=== PATIENT | male | born 1970 | race Caucasian/White ===

== ENCOUNTER 2020-07-19 14:01 | Outpatient (REF) | payer MEDICARE, MEDICAID, SELFPAY | END 2020-07-19 14:02 | disposition home or self-care (01) | LOC: HO.LAB 14:01 | PROVIDERS: PCP Family Medicine; Visit Provider Internal Medicine | DX: Z20.828 Contact with and (suspected) exposure to other viral communicable diseases (principal) | CPT/HCPCS: C9803; U0003 ==

== ENCOUNTER 2020-08-26 10:44 | Outpatient (REF) | payer MEDICARE, MEDICAID, SELFPAY | END 2020-08-26 10:45 | disposition home or self-care (01) | LOC: HO.LAB 10:44 | PROVIDERS: PCP Family Medicine; Visit Provider Internal Medicine | DX: Z20.828 Contact with and (suspected) exposure to other viral communicable diseases (principal) | CPT/HCPCS: C9803; U0003 ==

== ENCOUNTER 2020-09-23 12:46 | Outpatient (REF) | payer MEDICARE, MEDICAID, SELFPAY ==
--- NOTE | 2020-09-23 14:31 | MHC.AU.P13 ---
Adult Audiological Evaluation Date of Visit: 09/23/20 Reason for Appointment: Patient was accompanied by a staff member of his program. Patient has received surgery for a brain tumor on the right side of his head. He reports that when they performed the surgery, his right ear canal was affected. Patient has not previously worn hearing aids. Does patient feel they have a hearing loss?: Yes If Yes, Which Ear?: Right Ear When Was Hearing Difficulty First Noticed?: Has hearing been tested previously?: Yes Previous Hearing Test Results: Not available for review at this time Hearing Handicap Inventory HHIE SCORE: 12 Based on HHIE score, patient has: Mild to moderate perceived hearing handicap Ear History: Ear Deformity: Right Ear Recent Ear Drainage: None Reported Recent Ear Pain: None Reported Ear Infections in Childhood: Both Ears History of Ear Wax Buildup: Right Ear Medical History: Medical History: Brain tumor (type not specified), Head Injury Otoscopy: Right Ear: Partially occluded with cerumen Left Ear: Unremarkable Tympanometry: Right Ear: Normal Middle Ear System (Type A) Left Ear: Normal Middle Ear System (Type A) Otoacoustic Emissions Frequency Range Used: 1.6-8 kHz Right Ear Results: Absent Emissions Analysis: Reduced/Absent emissions suggest cochlear dysfunction Left Ear Results: Present 1.6-3 kHz, absent 4-8 kHz Analysis: Reduced/Absent emissions suggest cochlear dysfunction Hearing Evaluation: Transducer(s) Used: Insert Earphones Method: Conventional Audiometry Stimuli Used: Pure Tones Right Ear: Description of Hearing: Profound mixed hearing loss Left Ear: Description of Hearing: Normal sloping to severe mixed hearing loss Speech Recognition Threshold (SRT): Method Used: Monitored Live Voice Stimuli Used: Spondee Words Right Ear: NR at 100 dBHL Left Ear: 25 dBHL Word Discrimination: Method: Recorded Lists Word Lists Used: NU-6 Right Ear: Could not test due to extent of hearing loss Left Ear: 100% at 65 dBHL Recommendations: Audiological re-evaluation in one year. With permission, cerumen was removed from the right canal prior to testing using a lighted disposable curette without complication. Patient may benefit from amplification. Patient is not interested at this time. If patient and his guardian were to express interest in hearing aids in the future, they are welcome to schedule a hearing aid evaluation to discuss options. Diagnosis: Primary Diagnosis: H90.6 Mixed Hearing Loss, Bilateral Services Performed: Services Performed: Comprehensive Audiological Evaluation (CPT 92426), Limited Otoacoustic Emissions (CPT 51898), Tympanometry (CPT 37443) Signature: Provider: Genoveva Acosta, CCC-A
== END 2020-09-23 12:47 | disposition home or self-care (01) ==
LOC: HO.SH 12:46
PROVIDERS: Visit Provider Family Medicine
DX: H90.6 Mixed conductive and sensorineural hearing loss, bilateral (principal)
CPT/HCPCS: 92557; 92567; 92587

== ENCOUNTER 2020-10-10 08:40 | Outpatient (REF) | payer MEDICARE, MEDICAID, SELFPAY ==
[2020-10-10 09:52] LABS: Alanine Aminotransferase 18 U/L (0-40); Albumin Level 4.1 g/dL (3.5-5.0); Alkaline Phosphatase 96 U/L (39-117); Anion Gap 16 (12-20); Aspartate Amino Transferase 24 U/L (5-37); Bilirubin Total 0.9 mg/dL (0.0-1.0); Blood Urea Nitrogen 16 mg/dL (9-16); Calcium 9.1 mg/dL (8.4-10.2); Carbon Dioxide 27 mmol/L (22-29); Chloride 106 mmol/L (96-108); Estimated Glomerular Filt Rate > 60; Glucose Fasting 94 mg/dL (60-99); Potassium 4.5 mmol/l (3.3-5.1); Sodium 144 mmol/L (135-145); Total Protein 6.9 g/dL (6.5-8.0)
[2020-10-10 10:31] LABS: Estimated Average Glucose 97 mg/dL
== END 2020-10-10 08:41 | disposition home or self-care (01) ==
LOC: HO.LAB 08:40
PROVIDERS: Visit Provider Family Medicine
DX: E78.00 Pure hypercholesterolemia, unspecified (principal); R73.9 Hyperglycemia, unspecified; G40.909 Epilepsy, unspecified, not intractable, without status epilepticus; Z79.899 Other long term (current) drug therapy
CPT/HCPCS: 36415; 80053; 82550; 83036

== ENCOUNTER 2021-02-18 10:44 | Outpatient (REF) | payer MEDICARE, MEDICAID, SELFPAY ==
[2021-02-18 11:57] LABS: MANUAL DIFF FLAG NO
[2021-02-18 12:08] LABS: Basophils Percent Auto 0.3 % (0-2); Eosinophils Absolute Auto 0.2 X10*3/uL (0.0-0.4); Eosinophils Percent Auto 3.2 % (0-4); Hematocrit 43.3 % (42-52); Hemoglobin 14.1 g/dl (14.0-18.0); Imm Gran Abs Auto 0.03 X10*3/uL (0.00-0.03); Imm Gran Pct Auto 0.4 % (0.0-0.4); Lymphocytes Absolute Auto 1.1 X10*3/uL (1.2-4.9); Lymphocytes Percent Auto 14.9 % (20-40); Mean Corpuscular HGB Conc 32.6 g/dl (31.0-36.0); Mean Corpuscular Hemoglobin 30.1 pg (27.0-33.0); Mean Corpuscular Volume 92.5 fL (80-98); Mean Platelet Volume 9.3 fL (9.4-12.4); Monocytes Absolute Auto 0.8 X10*3/uL (0.1-1.2); Monocytes Percent Auto 10.3 % (2-11); Neutrophils Absolute Auto 5.2 X10*3/uL (2.0-8.3); Neutrophils Percent Auto 70.9 % (45-73); Platelet Count 251 X10*3/uL (160-400); Red Blood Count 4.68 X10*6/uL (4.60-5.80); Red Cell Distribution Width 12.1 % (11.0-16.0); White Blood Count 7.3 X10*3/uL (4.8-10.8)
[2021-02-18 12:36] LABS: Thyroid Stimulating Hormone 1.14 uIU/mL (0.32-4.0)
[2021-02-18 13:05] LABS: Alanine Aminotransferase 17 U/L (0-40); Albumin Level 4.2 g/dL (3.5-5.0); Alkaline Phosphatase 104 U/L (39-117); Anion Gap 11 (12-20); Aspartate Amino Transferase 19 U/L (5-37); Bilirubin Total 0.7 mg/dL (0.0-1.0); Blood Urea Nitrogen 12 mg/dL (9-16); Calcium 9.5 mg/dL (8.4-10.2); Carbon Dioxide 29 mmol/L (22-29); Chloride 107 mmol/L (96-108); Estimated Glomerular Filt Rate > 60; Glucose Random 95 mg/dL (60-115); Potassium 4.5 mmol/L (3.3-5.1); Sodium 142 mmol/L (135-145); Total Protein 6.5 g/dL (6.5-8.0)
== END 2021-02-18 10:45 | disposition home or self-care (01) ==
LOC: HO.LAB 10:44
PROVIDERS: PCP Family Medicine; Visit Provider Family Medicine
DX: R63.4 Abnormal weight loss (principal); G40.909 Epilepsy, unspecified, not intractable, without status epilepticus; E78.00 Pure hypercholesterolemia, unspecified; Z79.899 Other long term (current) drug therapy
CPT/HCPCS: 36415; 80053; 82550; 84443; 85025

== ENCOUNTER 2021-11-24 11:03 | Outpatient (REF) | payer MEDICARE, MEDICAID, SELFPAY ==
[2021-11-24 13:31] LABS: MANUAL DIFF FLAG NO
[2021-11-24 13:43] LABS: Basophils Percent Auto 0.6 % (0-2); Eosinophils Absolute Auto 0.2 X10*3/uL (0.0-0.4); Eosinophils Percent Auto 3.5 % (0-4); Hematocrit 45.1 % (42.0-52.0); Hemoglobin 14.9 g/dl (14.0-18.0); Imm Gran Abs Auto 0.02 X10*3/uL (0.00-0.03); Imm Gran Pct Auto 0.3 % (0.0-0.4); Lymphocytes Absolute Auto 1.5 X10*3/uL (1.2-4.9); Mean Corpuscular Hemoglobin 29.8 pg (27.0-33.0); Mean Corpuscular Volume 90.2 fL (80.0-98.0); Mean Platelet Volume 9.5 fL (9.4-12.4); Monocytes Absolute Auto 0.8 X10*3/uL (0.1-1.2); Monocytes Percent Auto 11.8 % (2-11); Neutrophils Absolute Auto 4.1 x10*3/uL (2.0-8.3); Neutrophils Percent Auto 61.8 % (45-73); Platelet Count 242 X10*3/uL (160-400); Red Cell Distribution Width 12.1 % (11.0-16.0); White Blood Count 6.6 X10*3/uL (4.8-10.8)
[2021-11-24 13:52] LABS: Alanine Aminotransferase 20 U/L (0-40); Albumin Level 4.2 g/dL (3.5-5.0); Alkaline Phosphatase 111 U/L (39-117); Anion Gap 11 (12-20); Aspartate Amino Transferase 21 U/L (5-37); Bilirubin Total 0.8 mg/dL (0.0-1.0); Blood Urea Nitrogen 13 mg/dL (9-16); Calcium 9.8 mg/dL (8.4-10.2); Carbon Dioxide 29 mmol/L (22-29); Chloride 105 mmol/L (96-108); Estimated Glomerular Filt Rate > 60; Glucose Fasting 101 mg/dL (60-99); Potassium 4.4 mmol/L (3.3-5.1); Sodium 141 mmol/L (135-145); Total Protein 6.8 g/dL (6.5-8.0)
== END 2021-11-24 11:04 | disposition home or self-care (01) ==
LOC: HO.10HDL 11:03
PROVIDERS: Visit Provider Family Medicine
DX: E78.00 Pure hypercholesterolemia, unspecified (principal); G40.909 Epilepsy, unspecified, not intractable, without status epilepticus; R27.0 Ataxia, unspecified; Z79.899 Other long term (current) drug therapy
CPT/HCPCS: 36415; 80053; 82550; 85025

== ENCOUNTER 2022-04-24 10:16 | Outpatient (REF) | payer MEDICARE, MEDICAID, SELFPAY ==
[2022-04-24 10:39] LABS: MANUAL DIFF FLAG NO
[2022-04-24 11:29] LABS: Basophils Percent Auto 0.5 % (0-2); Eosinophils Absolute Auto 0.2 X10*3/uL (0.0-0.4); Eosinophils Percent Auto 2.6 % (0-4); Hematocrit 43.7 % (42.0-52.0); Hemoglobin 14.6 g/dl (14.0-18.0); Imm Gran Abs Auto 0.03 X10*3/uL (0.00-0.03); Imm Gran Pct Auto 0.5 % (0.0-0.4); Lymphocytes Absolute Auto 1.4 X10*3/uL (1.2-4.9); Lymphocytes Percent Auto 22.9 % (20-40); Mean Corpuscular HGB Conc 33.4 g/dl (31.0-36.0); Mean Corpuscular Hemoglobin 29.9 pg (27.0-33.0); Mean Corpuscular Volume 89.5 fL (80.0-98.0); Mean Platelet Volume 9.2 fL (9.4-12.4); Monocytes Absolute Auto 0.7 X10*3/uL (0.1-1.2); Monocytes Percent Auto 10.8 % (2-11); Neutrophils Absolute Auto 3.9 x10*3/uL (2.0-8.3); Neutrophils Percent Auto 62.7 % (45-73); Platelet Count 248 X10*3/uL (160-400); Red Blood Count 4.88 X10*6/uL (4.60-5.80); White Blood Count 6.2 X10*3/uL (4.8-10.8)
[2022-04-24 12:02] LABS: Alanine Aminotransferase 15 U/L (0-40); Anion Gap 15 (12-20); Aspartate Amino Transferase 20 U/L (5-37); Blood Urea Nitrogen 11 mg/dL (9-16); Carbon Dioxide 26 mmol/L (22-29); Chloride 106 mmol/L (96-108); Cholesterol 147 mg/dL; Estimated Glomerular Filt Rate > 60; Glucose Fasting 96 mg/dL (60-99); HDL Cholesterol 44 mg/dL; LDL Cholesterol Calculated 77 mg/dl; Potassium 4.4 mmol/L (3.3-5.1); Sodium 143 mmol/L (135-145); Triglycerides 131 mg/dL
== END 2022-04-24 10:17 | disposition home or self-care (01) ==
LOC: HO.LAB 10:16
PROVIDERS: PCP Family Medicine; Visit Provider Family Medicine
DX: E78.00 Pure hypercholesterolemia, unspecified (principal); R73.9 Hyperglycemia, unspecified; D45 Polycythemia vera; I95.9 Hypotension, unspecified; Z79.899 Other long term (current) drug therapy
CPT/HCPCS: 36415; 80051; 80061; 82550; 82565; 82947; 84450; 84460; 84520; 85025

== ENCOUNTER 2022-09-18 10:26 | Outpatient (REF) | payer MEDICARE, MEDICAID, SELFPAY ==
[2022-09-18 10:42] LABS: MANUAL DIFF FLAG NO
[2022-09-18 10:58] LABS: Basophils Percent Auto 0.5 % (0-2); Eosinophils Absolute Auto 0.3 X10*3/uL (0.0-0.4); Eosinophils Percent Auto 3.4 % (0-4); Hematocrit 44.4 % (42.0-52.0); Hemoglobin 14.5 g/dl (14.0-18.0); Imm Gran Abs Auto 0.03 X10*3/uL (0.00-0.03); Imm Gran Pct Auto 0.4 % (0.0-0.4); Lymphocytes Absolute Auto 1.7 X10*3/uL (1.2-4.9); Lymphocytes Percent Auto 20.9 % (20-40); Mean Corpuscular HGB Conc 32.7 g/dl (31.0-36.0); Mean Corpuscular Hemoglobin 29.1 pg (27.0-33.0); Monocytes Absolute Auto 0.9 X10*3/uL (0.1-1.2); Monocytes Percent Auto 10.5 % (2-11); Neutrophils Absolute Auto 5.3 x10*3/uL (2.0-8.3); Neutrophils Percent Auto 64.3 % (45-73); Platelet Count 235 X10*3/uL (160-400); Red Blood Count 4.99 X10*6/uL (4.60-5.80); Red Cell Distribution Width 12.2 % (11.0-16.0); White Blood Count 8.2 X10*3/uL (4.8-10.8)
[2022-09-18 12:06] LABS: Alanine Aminotransferase 18 U/L (0-40); Anion Gap 12 (12-20); Blood Urea Nitrogen 15 mg/dL (9-16); Carbon Dioxide 26 mmol/L (22-29); Chloride 110 mmol/L (96-108); Estimated Glomerular Filt Rate > 60; Potassium 4.4 mmol/L (3.3-5.1); Sodium 144 mmol/L (135-145)
[2022-09-22 17:03] LABS: Levetiracetam Keppra 76.3 mcg/mL (6.0-46.0)
== END 2022-09-18 10:27 | disposition home or self-care (01) ==
LOC: HO.LAB 10:26
PROVIDERS: PCP Family Medicine; Visit Provider Family Medicine
DX: I10 Essential (primary) hypertension (principal); E78.00 Pure hypercholesterolemia, unspecified; R27.0 Ataxia, unspecified; G40.909 Epilepsy, unspecified, not intractable, without status epilepticus; Z79.899 Other long term (current) drug therapy
CPT/HCPCS: 36415; 80051; 80177; 82565; 84460; 84520; 85025

== ENCOUNTER 2023-03-24 08:40 | Outpatient (REF) | payer MEDICARE, MEDICAID, SELFPAY ==
--- NOTE | ~2023-03-24 | FL_ITS ---
EXAMINATION: FL BARIUM SWALLOW CLINICAL INFORMATION: Dysphagia. COMPARISON: 05/17/2018 and studies dating back to 03/25/2007 (report). TECHNIQUE: Gastrografin swallow examination is performed using fluoroscopic evaluation in addition to multiple fluoroscopic spot views. The patient is imaged upright due to visualized aspiration. Fluoroscopy time: 0.9 minutes DAP: 1.992 uGy-cm2 Images: 58 FINDINGS: During swallowing of the Gastrografin there is noted to be small bilateral pharyngeal diverticula left greater than right. There is noted to be laryngeal penetration and aspiration with the thin Gastrografin. There is a cough reflex elicited. No esophageal stricture identified. No esophageal ulceration is seen. FL/FL barium swallow IMPRESSION: Laryngeal penetration and tracheal aspiration with cough reflex. Small laryngeal diverticula.
== END 2023-03-24 08:41 | disposition home or self-care (01) ==
LOC: HO.XRAY 08:40
PROVIDERS: PCP Family Medicine; Visit Provider Family Medicine
DX: R13.10 Dysphagia, unspecified (principal)
CPT/HCPCS: 74220

== ENCOUNTER → 2023-03-24 08:41 | Outpatient (BNV) | payer MEDICARE, MEDICAID, SELFPAY | PROVIDERS: PCP Family Medicine; Visit Provider Radiology Diagnostic Radiology | DX: R13.10 Dysphagia, unspecified (principal) | CPT/HCPCS: 74220 ==

== ENCOUNTER 2023-12-02 10:52 | Outpatient (REF) | payer MEDICARE, MEDICAID, SELFPAY ==
[2023-12-02 11:06] LABS: MANUAL DIFF FLAG NO
[2023-12-02 11:27] LABS: Basophils Percent Auto 0.3 % (0-2); Eosinophils Absolute Auto 0.1 X10*3/uL (0.0-0.4); Eosinophils Percent Auto 1.3 % (0-4); Hematocrit 44.6 % (42.0-52.0); Hemoglobin 14.9 g/dl (14.0-18.0); Imm Gran Abs Auto 0.05 X10*3/uL (0.00-0.03); Imm Gran Pct Auto 0.5 % (0.0-0.4); Lymphocytes Absolute Auto 1.3 X10*3/uL (1.2-4.9); Lymphocytes Percent Auto 11.3 % (20-40); Mean Corpuscular HGB Conc 33.4 g/dl (31.0-36.0); Mean Corpuscular Hemoglobin 30.3 pg (27.0-33.0); Mean Corpuscular Volume 90.7 fL (80.0-98.0); Mean Platelet Volume 9.3 fL (9.4-12.4); Monocytes Absolute Auto 0.9 X10*3/uL (0.1-1.2); Monocytes Percent Auto 8.5 % (2-11); Neutrophils Absolute Auto 8.7 x10*3/uL (2.0-8.3); Neutrophils Percent Auto 78.1 % (45-73); Platelet Count 244 X10*3/uL (160-400); Red Blood Count 4.92 X10*6/uL (4.60-5.80); Red Cell Distribution Width 12.5 % (11.0-16.0); White Blood Count 11.1 X10*3/uL (4.8-10.8)
[2023-12-02 11:59] LABS: Alanine Aminotransferase 15 U/L (0-40); Albumin Level 4.1 g/dL (3.5-5.0); Alkaline Phosphatase 114 U/L (39-117); Anion Gap 11 (12-20); Aspartate Amino Transferase 18 U/L (5-37); Bilirubin Total 0.5 mg/dL (0.0-1.0); Blood Urea Nitrogen 16 mg/dL (9-16); Calcium 9.5 mg/dL (8.4-10.2); Carbon Dioxide 30 mmol/L (22-29); Chloride 109 mmol/L (96-108); Estimated Glomerular Filt Rate > 60; Glucose Random 99 mg/dL (60-115); Sodium 146 mmol/L (135-145)
== END 2023-12-02 10:53 | disposition home or self-care (01) ==
LOC: HO.LAB 10:52
PROVIDERS: PCP Family Medicine; Visit Provider Family Medicine
DX: G40.909 Epilepsy, unspecified, not intractable, without status epilepticus (principal); E78.00 Pure hypercholesterolemia, unspecified; R27.0 Ataxia, unspecified; Z79.899 Other long term (current) drug therapy
CPT/HCPCS: 36415; 80053; 82550; 85025

== ENCOUNTER 2024-08-31 08:10 | Outpatient (REF) | payer MEDICARE, MEDICAID, SELFPAY ==
--- OUTSIDE RECORDS SUMMARY | 2024-08-31 08:17 | XMS_ITS ---
Author Organization [facility] Address [address] [place] [address] Care Team Providers Care Telecasting Technician Name Role Phone Yung Petersen MD Primary Care Provider Chava Colunga Unavailable [phone] ALLERGIES Allergen (clinical drug ingredient) Drug/Non Drug Allergy documented on EMR Reaction Allergy Type Onset Date Status phenytoin Dilantin Unknown Drug Allergy Active benzodiazepine (FN) benzodiazepines (uncoded) Unknown Allergy Active barbiturate (FN) Barbituates (uncoded) Unknown Allergy Active many generic drugs (uncoded) Unknown Allergy Active strawberry allergenic extract strawberries (uncoded) Unknown Allergy Activ e Tranxene-SD Unknown Drug Allergy Activ e MEDICATIONS Medication SIG (Take, Route, Frequency, Duration) Notes Start Date End Date Status Multivitamin -- one tablet Orally on ce a day Unknown zocor 40 one tablet Oral once a day Unknown Remeron 45 MG 1 tablet at bedtime Orally Once a day Unknown Ativan 1 MG 1 tablet at bedtime as needed Orally Once a day/prn Unknown cloBAZam 10 MG 1 tablet Orally Twic e a day Unknown Lopressor 25 1 tablet with food Orally Twice a day Unknown LaMICtal 200 MG 1 tablet Orally Twic e a day/with 75 mg Unknown tylenol 650 one tablet Oral ever y 6 hours for mild pain Unknown Keppra 1000 MG TAKE 2 TABLETS BY MO [facility] TWICE DAILY Oral Twice a day Unknown Motrin 600 one tablet orally TW ICE DAILY-PRN Unknown Celluvisc 1% 1 drop into right ey e TID Unknown Omeprazole 20 MG 1 capsule Orally Onc e a day Unknown Oyster Shell Calcium/D3 500-400 MG-UNIT 1 tablet with meals Orally Twice a day Unknown PreviDent 5000 Plus 1.1 % Dental Unknown RisperDAL 3 MG 1 tablet Orally Once a day Unknown MiraLax (colon prep) 8.3 ounce ((238) grams mixed with Gatorade or Crystal Light orally begin at 5:00 p.m. the day before the procedure for 1 day 06/29/2019 Unknown Dulcolax (colon prep) 5 MG take at 3:00 p.m and 7:00p.m. Orally two tablets twice a day for one day for 1 day 06/29/2019 Unknown Encounters Encounter Location Date Provider Diagnosis [facility] [address] [facility] [address] [place] [address] 08/21/2024 Chava Rios PLAN OF TREATMENT No Information
--- OUTSIDE RECORDS SUMMARY | 2024-08-31 08:17 | XMS_ITS ---
Author Organization [facility] Address [address] [place] [address] Care Team Providers Care Public Administration Professor Name Role Phone Yung Petersen MD Primary Care Provider Unavailab Chava Calderon Unavailable [phone] Encounters Encounter Location Date Provider Diagnosis [facility] [address] [place] [address] 12/09/2023 Chava Rios PLAN OF TREATMENT No Information
--- OUTSIDE RECORDS SUMMARY | 2024-08-31 08:18 | XMS_ITS | Patient Health Record ---
Author Organization [facility] Address [address] [place] [address] Care Team Providers Care Director Industrial Relations Name Role Phone Yung Petersen MD Primary Care Provider UnavailChava Rosado Unavailable [phone] ALLERGIES Allergen (clinical drug ingredient) Drug/Non Drug Allergy documented on EMR Reaction Allergy Type Onset Date Status phenytoin Dilantin Unknown Drug Allergy Active benzodiazepine (FN) benzodiazepines (uncoded) Unknown Allergy Active barbiturate (FN) Barbituates (uncoded) Unknown Allergy Active many generic drugs (uncoded) Unknown Allergy Active strawberry allergenic extract strawberries (uncoded) Unknown Allergy Activ e Tranxene-SD Unknown Drug Allergy Activ e REASON FOR REFERRAL No Information MEDICATIONS Medication SIG (Take, Route, Frequency, Duration) Notes Start Date End Date Status tylenol 650 one tablet Oral ever y 6 hours for mild pain Unknown Keppra 1000 MG TAKE 2 TABLETS BY [facility] TWICE DAILY Oral Twice a day Unknown Oyster Shell Calcium/D3 500-400 MG-UNIT 1 tablet with meals Orally Twice a day Unknown Ativan 1 MG 1 tablet at bedtime as needed Orally Once a day/prn Unknown PreviDent 5000 Plus 1.1 % Dental Unknown cloBAZam 10 MG 1 tablet Orally Twic e a day Unknown RisperDAL 3 MG 1 tablet Orally Once a day Unknown MiraLax (colon prep) 8.3 ounce ((238) grams mixed with Gatorade or Crystal Light orally begin at 5:00 p.m. the day before the procedure for 1 day 06/29/2019 Unknown Motrin 600 one tablet orally TW ICE DAILY-PRN Unknown Dulcolax (colon prep) 5 MG take at 3:00 p.m and 7:00p.m. Orally two tablets twice a day for one day for 1 day 06/29/2019 Unknown Lopressor 25 1 tablet with food Orally Twice a day Unknown Multivitamin -- one tablet Orally on ce a day Unknown Celluvisc 1% 1 drop into right ey e TID Unknown zocor 40 one tablet Oral once a day Unknown Omeprazole 20 MG 1 capsule Orally Onc e a day Unknown Remeron 45 MG 1 tablet at bedtime Orally Once a day Unknown LaMICtal 200 MG 1 tablet Orally Twic e a day/with 75 mg Unknown IMMUNIZATIONS Vaccine Route Administration Date Status Comme nts Influenza Unknown 09/23/2018 Refused SOCIAL HISTORY Tobacco Use: Social History Observation Description Date Details (start date - stop date) Former Smoker NA - NA Sex Assigned At : Social History Observation Description Sex Assigned At Unknown Tobacco Use/Smoking Question Answer Notes Patient is a former smoker How long has it been since you last smoked? 1-5 years PROBLEMS Problem Type ICD Code Onset Dates Problem Status W/U Status Risk SNOMED Code Notes Problem Encounter for screening for malignant neoplasm of colon (Z12.11) Active confirmed 892103306 Problem Abnormal barium swallow (R93.3) Active confirmed Barium swallow abnormal (038137094) Problem Pharyngeal dysphagia (R13.13) Active confirmed 24703430943992 Problem Aspiration into airway, initial encounter (T17.908A) Active confirmed 549502227 Problem Aspiration into airway, subsequent encounter (T17.908D) Active confirmed 981631560 VITAL SIGNS Temperature 97.7 degrees Fahrenheit 10/26/2023 Blood pressure diastolic 00 mm Hg 10/26/2023 Height 68 in 10/26/2023 Blood pressure systolic 00 mm Hg 10/26/2023 Weight 142 lbs 10/26/2023 BMI 21.59 kg/m2 10/26/2023 Encounters Encounter Location Date Provider Diagnosis [facility] [address] [place] [address] 10/26/2023 Chava Rios Aspiration into airway, subsequent encounter T17.908D and Abnormal barium swallow R93.3 [facility] [address] [place] [address] 12/09/2023 Chava Rios [facility] [address] [place] [address] 08/21/2024 Chava Rios ASSESSMENTS Encounter Date Diagnosis Assessment Notes Treatment Notes Treatment Clinical Notes 10/26/2023 Abnormal barium swallow (ICD-10 - R93.3) 10/26/2023 Aspiration into airway, subsequent encounter (ICD-10 - T17.908D) Continue omeprazole and regular diet. Follow weights. His weight here today was 142#, which is 10# higher thn it was in 2019 PLAN OF TREATMENT Pending Test Test Name Order Date XR BARIUM SWALLOW-ESOPHAGUS 04/28/2018 XR BARIUM SWALLOW, MODIFIED VIDEO 2017 Future Test Test Name Order Date COLONOSCOPY 06/29/2019 Insurance Providers Payer Name Payer Address Payer Phone Subscriber Number Group Number Insured Name Patient Relationship to Insured Coverage Start Date Coverage End Date MEDICARE OF [place] [address] [place] [id number] LUCIA NATARAJAN Self - patient is the insured MEDICAID OF [facility] [address] [place] [address] [id number] LUCIA NATARAJAN Self - patient is the insured MEDICAL (GENERAL) HISTORY Medical History History ICD Code Epilepsy Depression Aspiration and GERD---Barium studies have shown a normal esophagus, but some aspiration---he [place] [facility] [place]. This was reconfirmed on barium swallow in March of 2023 but did not look particularly severe and he did have coughing during the imaging study HTN Brain tumor as below Negative screening colonoscopy in 09/2019 Surgical History Surgery Date(Month/Year) VNS implant for the epilepsy Brain surgery for a brain tumor at age 10 Bilateral ankle surgery
--- OUTSIDE RECORDS SUMMARY | 2024-08-31 08:18 | XMS_ITS ---
Author Organization [facility] Address [address] [place] [address] Care Team Providers Care Insurance Account Executive Name Role Phone Yung Petersen MD Primary Care Provider Chava Colunga Unavailable [phone] ALLERGIES Allergen (clinical drug ingredient) Drug/Non Drug Allergy documented on EMR Reaction Allergy Type Onset Date Status phenytoin Dilantin Unknown Drug Allergy Active benzodiazepine (FN) benzodiazepines (uncoded) Unknown Allergy Active barbiturate (FN) Barbituates (uncoded) Unknown Allergy Active many generic drugs (uncoded) Unknown Allergy Active strawberry allergenic extract strawberries (uncoded) Unknown Allergy Activ e Tranxene-SD Unknown Drug Allergy Activ e REASON FOR VISIT Patient presents today for an OFFICE ONE YEAR F/U HX OF DYSPHAGIA MEDICATIONS Medication SIG (Take, Route, Frequency, Duration) Notes Start Date End Date Status MiraLax (colon prep) 8.3 ounce ((238) grams mixed with Gatorade or Crystal Light orally begin at 5:00 p.m. the day before the procedure for 1 day 06/29/2019 Active Dulcolax (colon prep) 5 MG take at 3:00 p.m and 7:00p.m. Orally two tablets twice a day for one day for 1 day 06/29/2019 Active Ativan 1 MG 1 tablet at bedtime as needed Orally Once a day/prn Active cloBAZam 10 MG 1 tablet Orally Twic e a day Active Remeron 45 MG 1 tablet at bedtime Orally Once a day Active zocor 40 one tablet Oral once a day Active Lopressor 25 1 tablet with food [facility] Twice a day Active Multivitamin -- one tablet Orally on ce a day Active Keppra 1000 MG TAKE 2 TABLETS BY MO [facility] TWICE DAILY Oral Twice a day Active LaMICtal 200 MG 1 tablet Orally Twic e a day/with 75 mg Active PreviDent 5000 Plus 1.1 % Dental Active RisperDAL 3 MG 1 tablet Orally Once a day Active Oyster Shell Calcium/D3 500-400 MG-UNIT 1 tablet with meals Orally Twice a day Active Motrin 600 one tablet orally TW ICE DAILY-PRN Active tylenol 650 one tablet Oral ever y 6 hours for mild pain Active Omeprazole 20 MG 1 capsule Orally Onc e a day Active Celluvisc 1% 1 drop into right eye TID Active SOCIAL HISTORY Tobacco Use: Social History Observation [...] W/U Status Risk SNOMED Code Notes Problem Abnormal barium swallow (R93.3) Active confirmed Barium swallow abnormal (358479909) VITAL SIGNS BMI 21.59 kg/m2 10/26/2023 Blood pressure systolic 00 mm Hg 10/26/19 24 Blood pressure diastolic 00 mm Hg 024 Height 68 in 10/26/2023 Temperature 97.7 degrees Fahrenheit 10/26/19 24 Weight 142 lbs 10/26/2023 Encounters Encounter Location Date Provider Diagnosis [facility] [address] [place] [address] 10/26/2023 Chava Rios Aspiration into airway, subsequent encounter T17.908D and Abnormal barium swallow R93.3 ASSESSMENTS Encounter Date Diagnosis Assessment Notes Treatment Notes Treatment Clinical Notes 10/26/2023 Aspiration into airway, subsequent encounter (ICD-10 - T17.908D) Continue omeprazole and regular diet. Follow weights. His weight here today was 142#, which is 10# higher thn it was in 2019 10/26/2023 Abnormal barium swallow (ICD-10 - R93.3) PLAN OF TREATMENT Treatment Notes Assessment Notes Aspiration into airway, subs equent encounter Continue omeprazole and regular diet. Follow weights. His weight here today was 142#, which is 10# higher thn it was in 2019 Next Appt Details Follow Up: prn, Reason: Progress Notes * Examination Category Sub-Category Detail Notes General Examination GENERAL APPEARANCE: pleasant , well nourished, well developed, in no acute distress--he is wearing a helmet EYES: sclera non-icteric NECK/THYROID: no cervical lymphade nopathy, neck supple HEART: S1, S2 normal LUNGS: clear to auscultatio n bilaterally ABDOMEN: normal bowel sounds, no guarding or rigidity, no guarding or rigidity, no masses palpable, soft, nontender, nondistended NEUROLOGIC: alert and oriented SKIN: nonjaundiced, no spi luis angiomata EXTREMITIES: no edema ORAL CAVITY: mucosa moist
[2024-08-31 11:30] LABS: Glucose Fasting 112 mg/dL (60-99)
[2024-08-31 11:35] LABS: Estimated Average Glucose 103 mg/dL; Hemoglobin A1C 124.6998 umol/L; Hemoglobin A1c % 5.2 % (<6.0); Total Hemoglobin (HGBA1C) 3740.9723 umol/L
== END 2024-08-31 08:11 | disposition home or self-care (01) ==
LOC: HO.WFDLDS 08:10
PROVIDERS: Visit Provider Family Medicine
DX: R73.09 Other abnormal glucose (principal)
CPT/HCPCS: 36415; 82947; 83036

== ENCOUNTER 2024-10-13 09:34 | Outpatient (AMB) | payer MEDICARE, MEDICAID, SELFPAY ==
--- NOTE | 2024-10-13 07:57 | MHC.OFFVIS ---
Intake Visit Reasons: Former Smoker Allergies Barbiturates [BARBITURATES] Allergy (Unknown, Unverified 05/30/20 15:09) UNKNOWN Benzodiazepines [BENZODIAZEPINES] Allergy (Unknown, Unverified 05/30/20 15:09) UNKNOWN clorazepate dipotassium [From TRANXENE T-TAB] Allergy (Unknown, Unverified 05/30/20 15:09) UNKNOWN phenytoin [From DILANTIN] Allergy (Unknown, Unverified 05/30/20 15:09) UNKNOWN strawberry [STRAWBERRY] Allergy (Unknown, Unverified 05/30/20 15:09) UNKNOWN MANY GENERIC DRUGS Allergy (Unknown, Uncoded 05/30/20 15:09) UNKNOWN HPI HPI Former Smoker: Details: Initial visit for this 54yo former smoker with a 100PYH. Patient started smoking at age 14yo for 37 years at 1-5ppd. He quit in 2020 - [facility] [place] . Denies marijuana use. Denies second hand smoke exposure. Denies exposure to chemicals or substances like asbestos. . Denies known family history of lung cancer. Denies personal history of cancers. Denies chest CT in last year. . Denies recent travel outside the [place]. Denies recent respiratory illness or recent hospitalization for respiratory issues. Denies testing positive for COVID. Unsure if he receiving COVID Vaccine. . Denies fever, chills, new/worsening cough, hemoptysis, hoarseness or dysphagia. Denies significant chest pain, significant dyspnea or unintentional weight loss. Patient Lung Cancer Screening Questionnaire reviewed with patient by provider. . Shared Decision Making Completed. Patient meets criteria. Discussed in detail with patient, the risk vs benefit of LDCT screening. Patient consents to proceed with scan. Discussed and encouraged continued smoking cessation. [facility] Medical History (Updated 09/21/24 @ 12:44 by Gi Alfred PA-C) Seizure disorder History of sick sinus syndrome History of pacemaker History of acoustic neuroma Depression Hyperlipidemia GERD (gastroesophageal reflux disease) Personal history of nicotine dependence Surgical History (Updated 10/09/24 @ 13:22 by Gi Alfred PA-C) History of cardiac pacemaker History of craniotomy History of nasal septoplasty History of colonoscopy Social History (Updated 10/13/24 @ 10:00 by Gi Alfred PA-C) Patient Tobacco Use Status: Former Tobacco user Years Smoked: (onset 14yo, 1-5ppd x 37yrs, 100pyh, quit 2020) Assessment & Plan Assessment & Plan (1) Personal history of nicotine dependence: Comment: (onset 14yo, 2-5ppd - quit 2020) Code(s): Z87.891 - Personal history of nicotine dependence Category: Medical Plan: - SDM visit completed today in office. - Patient meets criteria for LDCT for lung cancer screening purposes and is asymptomatic. - Smoking cessation counseling offered. Patients can always call 0-800-Loaj-Now. - Will arrange for a LDCT scan of the chest for screening purposes at [facility]. - Risks, benefits, and alternatives were discussed in detail and the patient agrees to proceed. - Risks discussed include but are not limited to: radiation exposure, anxiety during testing and while awaiting results, false negatives, false positives and possibility of additional intervention such as further imaging or surgical procedures for benign disease. - Benefits are obviously detection of lung cancer at an early stage which can lead to improved outcomes. - Discussed the importance of screening program compliance with adherence to yearly LDCT scan as scheduled - or sooner interval scans for personalized screening regimen. - Discussed follow up plan. Our office will send a letter discussing results and if needed set up phone call and office visit based on CT findings. - Patient educated on results categorization and the management decisions for suspicious findings potentially found on the screening LDCT scan. Any patient with a Lung RADS score of 3 or 4 will be reviewed by a multidisciplinary team at [facility] to form a plan of action in regards to scan findings. - If further work up is warranted for a suspicious lung finding this will be followed by the Lung Cancer Screening program in conjunction with the Thoracic Surgery Department at [facility]. - A copy of the office note and LDCT will be sent to the patient's PCP - as well as documentation on any associated further plans of care. - Incidental findings on LDCT are the PCP's responsibility. These findings are indicated with an S finding on the LDCT Assessment. A note discussing the findings will be sent to the PCP who is then responsible for further management. - All questions answered.? Coding Level of Care Code Lung Cancer Screening G0296 Diagnoses Personal history of nicotine dependence Z87.891
== END 2024-10-13 10:02 | disposition home or self-care (01) ==
PROVIDERS: PCP Family Medicine; Visit Provider Physician Assistant Medical
DX: Z87.891 Personal history of nicotine dependence (principal)
CPT/HCPCS: G0296

== ENCOUNTER 2024-10-13 09:59 | Outpatient (REF) | payer MEDICARE, MEDICAID, SELFPAY ==
--- NOTE | ~2024-10-13 | CT_ITS ---
CLINICAL HISTORY: Z87.891 - Personal history of nicotine dependence CT lung cancer screening (LDCT) Comparison: CT/REG/DC/SR - CHEST WITHOUT CONTRAST 52504 - 04/22/20 13:09 EDT Technique: Axial CT images of the chest using low-dose technique. Referring provider counseled the patient on shared decision-making for LDCT screening. Additional counseling was provided on smoking cessation. Effective radiation dose total: DLP 32.9 mGycm, CTDIvol 1 mGy. Findings: The prior CT reports are not available for review. Lung: Centrilobular and paraseptal emphysema. Status post wedge resection with postsurgical changes of the right upper lobe. Multiple small pulmonary nodules: 2 mm in the right upper lobe series 4, image 26; 2 mm in the right middle lobe image 32; 4.8 mm in the right lower lobe abutting the fissure image 30, previously 3.4 mm. Stable multiple punctate nodules of the right lower lobe. Stable 2 mm nodule of the left lower lobe abutting the fissure. Stable 3 mm subpleural nodule of the right upper lobe image 29. Coronary artery calcifications: Mild Limited upper abdomen: There is a gallstones in the gallbladder. Other: None Impression: LungRADS 2 - Benign Appearance: Continue annual screening with low dose Chest CT in 12 months. ##L2# Category 1: Normal; continue annual screening Category 2: Benign appearance or behavior, continue annual screening Category 3: Probably benign, [address] recommended Category 4A: Suspicious, [address] recommended; may consider PET/CT Category 4B: Suspicious, Additional diagnostics and/or tissue sampling recommended Category 4X: Suspicious, Additional diagnostics and/or tissue sampling recommended Category 0: Recalls (incomplete screen due to Incomplete coverage, Noise, Respiratory motion, Expiration, Obscured by acute abnormality) This document has been electronically signed by: Xavier Tran MD on 10/13/2024 16:02:44
== END 2024-10-13 10:00 | disposition home or self-care (01) ==
LOC: HO.CT 09:59
PROVIDERS: PCP Family Medicine; Visit Provider Physician Assistant Medical
DX: Z12.2 Encounter for screening for malignant neoplasm of respiratory organs (principal); Z87.891 Personal history of nicotine dependence
CPT/HCPCS: 71271; G0296

== ENCOUNTER → 2024-10-13 10:01 | Outpatient (BNV) | payer MEDICARE, MEDICAID, SELFPAY | PROVIDERS: PCP Family Medicine; Visit Provider Nuclear Medicine | DX: Z87.891 Personal history of nicotine dependence (principal) | CPT/HCPCS: 71271 ==

== ENCOUNTER 2025-02-27 12:15 | Outpatient (REF) | payer MEDICARE, MEDICAID, SELFPAY ==
[2025-02-27 13:12] LABS: MANUAL DIFF FLAG NO
[2025-02-27 13:15] LABS: Basophils Percent Auto 0.5 % (0-2); Eosinophils Absolute Auto 0.1 X10*3/uL (0.0-0.4); Hematocrit 44.6 % (42.0-52.0); Hemoglobin 14.6 g/dl (14.0-18.0); Imm Gran Abs Auto 0.02 X10*3/uL (0.00-0.03); Imm Gran Pct Auto 0.3 % (0.0-0.4); Lymphocytes Absolute Auto 1.6 X10*3/uL (1.2-4.9); Lymphocytes Percent Auto 24.3 % (20-40); Mean Corpuscular HGB Conc 32.7 g/dl (31.0-36.0); Mean Corpuscular Hemoglobin 29.7 pg (27.0-33.0); Mean Corpuscular Volume 90.7 fL (80.0-98.0); Mean Platelet Volume 9.4 fL (9.4-12.4); Monocytes Absolute Auto 0.6 X10*3/uL (0.1-1.2); Monocytes Percent Auto 9.8 % (2-11); Neutrophils Absolute Auto 4.1 x10*3/uL (2.0-8.3); Neutrophils Percent Auto 63.1 % (45-73); Platelet Count 235 X10*3/uL (160-400); Red Blood Count 4.92 X10*6/uL (4.60-5.80); Red Cell Distribution Width 12.1 % (11.0-16.0); White Blood Count 6.5 X10*3/uL (4.8-10.8)
[2025-02-27 13:38] LABS: Alanine Aminotransferase 20 U/L (0-40); Aspartate Amino Transferase 22 U/L (5-37); Estimated Glomerular Filt Rate > 60
[2025-03-01 23:50] LABS: Levetiracetam Keppra 75.7 mcg/mL (6.0-46.0)
== END 2025-02-27 12:16 | disposition home or self-care (01) ==
LOC: HO.10HDL 12:15
PROVIDERS: Visit Provider Family Medicine
DX: D45 Polycythemia vera (principal); N40.0 Benign prostatic hyperplasia without lower urinary tract symptoms; J44.9 Chronic obstructive pulmonary disease, unspecified; G40.909 Epilepsy, unspecified, not intractable, without status epilepticus; E78.00 Pure hypercholesterolemia, unspecified; Z79.899 Other long term (current) drug therapy; Z12.5 Encounter for screening for malignant neoplasm of prostate
CPT/HCPCS: 36415; 80177; 82550; 82565; 84153; 84450; 84460; 85025

== ENCOUNTER 2025-05-21 10:37 | Outpatient (AMB) | payer MEDICARE, MEDICAID, SELFPAY ==
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
[2025-05-21 10:47] VITALS: BP 100/62; PULSE 52; RESP 16; TEMP 36.3; O2SAT 97; BMI 22.6
--- OUTSIDE RECORDS SUMMARY | 2025-05-21 12:49 | XMS_ITS | Patient Health Record ---
Author Organization [facility] Address [address] [place] [address] Care Team Providers Care Green Building Design Specialist Name Role Phone Nicola (RETIRED) Yung SUN Primary Care Provider Unavailable Chava Rios Unavailable [phone] Allergies Allergen (clinical drug ingredient) Drug/Non Drug Allergy documented on EMR Reaction Allergy Type Onset Date Status phenytoin Dilantin Unknown Drug Allergy Active benzodiazepine (FN) benzodiazepines (uncoded) Unknown Allergy Active barbiturate (FN) Barbituates (uncoded) Unknown Allergy Active many generic drugs (uncoded) Unknown Allergy Active strawberry allergenic extract strawberries (uncoded) Unknown Allergy Activ e Tranxene-SD Unknown Drug Allergy Activ e Reason For Referral No Information Medications Medication SIG (Take, Route, Frequency, Duration) Notes Start Date End Date Status tylenol 650 one tablet Oral ever y 6 hours for mild pain Unknown Keppra 1000 MG TAKE 2 TABLETS BY [facility] TWICE DAILY Oral Twice a day Unknown [...] Twic e a day/with 75 mg Unknown Immunizations Vaccine Route Administration Date Status Comme nts Influenza Unknown 09/23/2018 Refused Social History Tobacco Use: Social History Observation Description Date Details (start date - stop date) Former Smoker NA - NA Tobacco Use/Smoking Question Answer Notes Patient is a former smoker How long has it been since you last smoked? 1-5 years Section Notes: Smoker; no alcohol Smoker; no alcohol Smoker; no alcohol Smoker; no alcohol Nonsmoker; no alcohol Problems Problem Type SNOMED Code ICD Code Onset Dates Problem Status W/U Status Risk Notes Problem [id number] Encounter for screening for malignant neoplasm of colon (Z12.11) Active confirmed Problem Barium swallow abnormal (665400779) Abnormal barium swallow (R93.3) Active confirmed Problem [id number] Pharyngeal dysphagia (R13.13) Active confirmed Problem 727268454 Aspiration into airway, initial encounter (T17.908A) Active confirmed Problem 676112178 Aspiration into airway, subsequent encounter (T17.908D) Active confirmed Encounters Encounter Location Date Provider Diagnosis [facility] [address] [place] [address] 08/21/2024 Chava Rios Plan Of Treatment Pending Test Test Name Order Date XR BARIUM SWALLOW-ESOPHAGUS 04/28/2018 XR BARIUM SWALLOW, MODIFIED VIDEO 2017 Future Test Test Name Order Date COLONOSCOPY 06/29/2019 Insurance Providers Payer Name Payer Address Payer Phone Subscriber Number Group Number Insured Name Patient Relationship to Insured Coverage Start Date Coverage End Date MEDICARE OF [place] [address] [place] [id number] [phone] [id number] LUCIA NATARAJAN Self - patient is the insured MEDICAID OF [facility] [address] [place] [address] [phone] [id number] LUCIA NATARAJAN Self - patient is the insured Medical (General) History Medical History History ICD Code Epilepsy Depression Aspiration and GERD---Barium studies have shown a normal esophagus, but some aspiration---he was seen by the Swallowing Eval Team at [facility] for the modified Barium swallow in 2017. [...]
== END 2025-05-21 12:01 | disposition home or self-care (01) ==
LOC: HO.HMCHD 10:37
PROVIDERS: PCP Student in an Organized Health Care Education/Training Program; Visit Provider Student in an Organized Health Care Education/Training Program
DX: Z00.00 Encounter for general adult medical examination without abnormal findings (principal); G40.909 Epilepsy, unspecified, not intractable, without status epilepticus; E78.5 Hyperlipidemia, unspecified; I10 Essential (primary) hypertension; F32.A Depression, unspecified; Z87.891 Personal history of nicotine dependence

== ENCOUNTER 2025-05-21 11:25 | Outpatient (REF) | payer MEDICARE, MEDICAID, SELFPAY ==
[2025-05-21 12:55] LABS: MANUAL DIFF FLAG NO
[2025-05-21 13:07] LABS: Hemoglobin A1C 126.9325 umol/L
[2025-05-21 13:11] LABS: Hematocrit 45.8 % (42.0-52.0); Hemoglobin 14.7 g/dl (14.0-18.0); Imm Gran Abs Auto 0.03 X10*3/uL (0.00-0.03); Imm Gran Pct Auto 0.4 % (0.0-0.4); Lymphocytes Absolute Auto 1.5 X10*3/uL (1.2-4.9); Mean Corpuscular HGB Conc 32.1 g/dl (31.0-36.0); Mean Corpuscular Hemoglobin 29.5 pg (27.0-33.0); Mean Corpuscular Volume 91.8 fL (80.0-98.0); NRBC Abs Auto 0.000 X10*3/uL (0.0-0.012); NRBC Pct Auto 0.0 /100WBC (0.0-0.2); Platelet Count 251 X10*3/uL (160-400); Red Blood Count 4.99 X10*6/uL (4.60-5.80); White Blood Count 7.1 X10*3/uL (4.8-10.8)
[2025-05-21 13:45] LABS: Alanine Aminotransferase 21 U/L (0-40); Albumin Level 4.2 g/dL (3.5-5.0); Alkaline Phosphatase 108 U/L (39-117); Anion Gap 11 (12-20); Aspartate Amino Transferase 28 U/L (5-37); Blood Urea Nitrogen 14 mg/dL (9-16); Calcium 9.0 mg/dL (8.4-10.2); Carbon Dioxide 27 mmol/L (22-29); Chloride 109 mmol/L (96-108); Cholesterol 145 mg/dL (<200); Estimated Glomerular Filt Rate > 60; HDL Cholesterol 37 mg/dL (>40); Potassium 4.3 mmol/L (3.3-5.1); Sodium 143 mmol/L (135-145); Total Protein 7.0 g/dL (6.5-8.0); Triglycerides 97 mg/dL (<150)
[2025-05-21 14:57] LABS: Free T4 (Free Thyroxine) 0.93 ng/dL (0.71-1.85)
[2025-05-22 03:29] LABS: Syphilis Screen Nonreactive (Nonreactive)
[2025-05-22 03:51] LABS: HBS Num1 1.25 mIU/mL (0-7.99); HBc Num1 0.06 S/CO (0.00-0.79); HBsAGNum1 0.47 S/CO (0.00-0.99); HIV Num 1 0.05 S/CO (0.00-0.99); Hepatitis A Antibody IgM 0.21 Index (0-0.79); Hepatitis B Surface Antigen Negative (Negative); ~HepC Num1 0.12 S/CO (0.00-0.79); ~Hepatitis A Antibody IgM Nonreactive (Nonreactive); ~Hepatitis B Surface Antibody NONREACTIVE (Nonreactive); ~Hepatitis C Antibody Nonreactive (Nonreactive)
== END 2025-05-21 11:26 | disposition home or self-care (01) ==
LOC: HO.10HDL 11:25
PROVIDERS: Visit Provider Student in an Organized Health Care Education/Training Program
DX: I10 Essential (primary) hypertension (principal); E78.5 Hyperlipidemia, unspecified; F32.A Depression, unspecified; Z79.899 Other long term (current) drug therapy; G40.909 Epilepsy, unspecified, not intractable, without status epilepticus; Z87.891 Personal history of nicotine dependence
CPT/HCPCS: 36415; 80053; 80061; 82306; 83036; 84439; 84443; 85025; 86704; 86706; 86709; 86780; 86803; 87340; 87389; 96127; 99386

== ENCOUNTER 2025-08-21 11:29 | Outpatient (AMB) | payer MEDICARE, MEDICAID, SELFPAY ==
[2025-08-21 11:31] VITALS: BP 116/74; PULSE 54; TEMP 36.5; O2SAT 96; BMI 24.7
--- NOTE | 2025-08-21 11:31 | A.OFFPC_ITS ---
Vital Signs 08/21/25 11:31 Height 5 ft 9 in Weight 167 lb BMI 24.7 BP 116/74 Blood Pressure Location Lt brachial Position Sitting Pulse 54 Pulse Source Pulse Oximeter Temp 97.7 F Temp Source Temporal Artery Scan Pulse Oximetry (%) 96 Oxygen Delivery Method Room Air Intake Visit Reasons: yearly pe and 3 month f/u Manager Entry Required: No Accompanied by: caregiver Allergies Barbiturates (BARBITURATES) Allergy (Unknown, Verified 08/21/25 11:32) UNKNOWN Benzodiazepines (BENZODIAZEPINES) Allergy (Unknown, Verified 08/21/25 11:32) UNKNOWN clorazepate dipotassium (From TRANXENE T-TAB) Allergy (Unknown, Verified 08/21/25 11:32) UNKNOWN phenytoin (From DILANTIN) Allergy (Unknown, Verified 08/21/25 11:32) UNKNOWN strawberry (STRAWBERRY) Allergy (Unknown, Verified 08/21/25 11:32) UNKNOWN MANY GENERIC DRUGS Allergy (Unknown, Uncoded 05/30/20 15:09) UNKNOWN Tobacco use date assessed: 08/21/25 Dental Screening Dental Screen Date: 08/21/25 Did you have a dental visit in the last 12 months?: Yes Did you have a dental problem in the last 6 months where you did not have access to dental care?: No HPI HPI Comments History of Present Illness Details History of Present Illness The patient is a 55 year old male presenting for a follow-up visit for management of chronic conditions and health maintenance. The patient has a history of a seizure disorder, which has been stable with no seizure activity for about four years. He is on Keppra, Lamictal, and Fycompa for seizure management. He sees a neurologist for this condition. For glaucoma, the patient uses brimonidine and carbomethylcellulose eye drops and had a follow-up with his customer sales distributor last week. He has a scheduled intensive workup for his glaucoma. He is reluctant to add another eye drop to his regimen due to the number of drops he already uses. He also uses artificial tears for dry eyes. The patient is being treated for depression and a mood disorder, for which he follows with a psychiatrist. His medications for these conditions include se rtraline, risperidone, and mirtazapine. He has a history of hypertension treated with Lopressor, hypercholesterolemia treated with simvastatin, and gastroesophageal reflux disease treated with omeprazole. He also takes Tylenol as needed for pain. His blood pressure today was noted to be great. Blood work from May showed normal blood counts and electrolytes. Regarding his social history, the patient has a 30-year history of smoking but quit about four years ago. He is not due for a lung cancer screening until next year. He is reluctant to receive the flu shot. Medical History: - Seizure disorder, stable for 4 years - Glaucoma - Major depressive disorder - Mood disorder - Hypertension - Hypercholesterolemia - Gastroesophageal reflux disease - Xerophthalmia - Pain, managed as needed - History of tobacco use, quit 4 years a go after 30 years of smoking Medications: - Tylenol, as needed for pain - Artificial tears, for dry eyes - Brimonidine, for glaucoma - Carboxymethylcellulose, for glaucoma - Sertraline (Zoloft) 25 mg once daily, for depression - Keppra 2000 mg twice daily, for seizur es - Lamictal 200 mg twice daily, for seizu res - Lopressor 25 mg twice daily, for blood pressure - Omeprazole, for acid reflux - Risperidone 3 mg every night, for mood - Fycompa 6 mg once daily at night, for seizures - Mirtazapine (Remeron) 45 mg, for depre ssion - Simvastatin 40 mg, for cholesterol - Restasis, for dry eyes Diagnostic Results: - Labs: Blood work in May revealed normal blood counts and electrolytes. Social History - Tobacco Use: The patient has a 30-year history of smoking and quit 4 years ago. Health Maintenance - The patient was advised to get the COV ID-19 booster and the influenza vaccine from the pharmacy. - The patient expressed reluctance to ge t the flu shot. - He is not due for any screenings at th is time. - His next lung cancer screening is due next year. Patient was informed and verbally consented to the use of an ambient scribe for clinic note documentation during this visit. Vital signs reviewed. Comprehensive history, review of systems, and physical exam completed. Medications, allergies, and problem list reviewed and updated. Counseling provided on nutrition, regular exercise, sleep hygiene, and moderation of alcohol use. Discussed age-appropriate screenings (mammogram, colonoscopy, Pap, bone density) and immunizations (flu, COVID, shingles, Tdap). Screened for depression, fall risk, and home safety; no current concerns. Discussed stress management, dental and vision care, and importance of ongoing preventive follow-up. Routine labs ordered for metabolic and lipid screening. Patient educated on healthy lifestyle and agrees with the plan. [facility] Medical History (Updated 08/21/25 @ 12:38 by Michael Monzon MD) Glaucoma Hypertension Seizure disorder History of sick sinus syndrome History of pacemaker History of acoustic neuroma Depression Hyperlipidemia GERD (gastroesophageal reflux disease) Personal history of nicotine dependence Surgical History History of cardiac pacemaker History of craniotomy History of nasal septoplasty History of colonoscopy (~09/25/19) Social History Housing: Assisted Living Facility Patient Tobacco Use Status: Former Tobacco user Years Smoked: (onset 14yo, 1-5ppd x 37yrs, 100pyh, quit 2020) e-Cigarette/Vaping Use: Former Use service: No Current occupational status: disabled Cognitive needs: No Hearing needs: No Vision needs: No Questionnaire Thrive Questionnaire Date Thrive assessed: 05/21/25 ZAHEER-7 AMB Questionnaire ZAHEER-7 Date ZAHEER - 7 assessed: 05/21/25 Source: Developed by Drs. Chava Ga, Kristie Mcelroy, Mainor Moss and colleagues, with an educational nicole from [employer]. Review of Systems Narrative Review of Systems - Eyes: Reports dry eyes. - Musculoskeletal: Denies pain. All systems reviewed & are unremarkable except as reviewed in HPI and above Physical exam (Primary Care) Vital Signs: Last Vital Signs Temp 97.7 F 08/21/25 11:31 Pulse 54 08/21/25 11:31 BP 116/74 08/21/25 11:31 Pulse Ox 96 08/21/25 11:31 Oxygen Delivery Method Room Air 08/21/25 11:31 BMI result Body Mass Index 24.7 Tobacco/Smoking Status: Tobacco use Status Tobacco use date assessed 08/21/25 08/21/25 11:35 Patient Tobacco Use Status Former Tobacco user 08/21/25 11:35 e-Cigarette/Vaping Use Former Use 08/21/25 11:42 Thrive Assessment: Date of Thrive Assessment Date Thrive assessed 05/21/25 08/21/25 11:35 Narrative Physical Exam General: Alert and oriented, Well nourished, No acute distress. Eye: Pupils are equal, round and reactive to light, Intact accommodation, Extr aocular movements are intact, Normal conjunctiva, Vision unchanged. HENT: Normocephalic, Atraumatic, Tympanic membranes are clear, Normal hearing, Oral mucosa is moist, No pharyngeal erythema, Ear canals patent. Respiratory: Lungs CTA bilaterally, No wheeze, Respirations are non-labored. Cardiovascular: Regular rate, Regular rhythm, S1 auscultated, S2 auscultated, No murmur, Good pulses equal in all extremities, Normal peripheral perfusion, No edema. Gastrointestinal: Soft, Non-tender, Non-distended, Normal bowel sounds, No organomegaly. Musculoskeletal: Normal range of motion, Normal strength, No tenderness, No swelling, No deformity, Normal gait. Integumentary: Warm, Dry, [place], Intact. Neurologic: Alert, Oriented, Normal sensory, Normal motor function, No focal defects, Cranial Nerves II-XII are grossly intact, Normal deep tendon reflexes. Psychiatric: Cooperative, Appropriate mood & affect, Normal judgment. Coding Level of Care Code Est Pt Level 4 (10889) Complex visit Add On G2211 Diagnoses Seizure disorder G40.909 Glaucoma, unspecified glaucoma type, unspecified laterality H40.9 Glaucoma type: unspecified Laterality: unspecified laterality Depression, unspecified depression type F32.A Depression Type: unspecified Hypertension, unspecified type I10 Hypertension type: unspecified Hyperlipidemia, unspecified hyperlipidemia type E78.5 Hyperlipidemia type: unspecified Gastroesophageal reflux disease without esophagitis K21.9 Esophagitis presence: without esophagitis Assessment & Plan Assessment & Plan (1) Seizure disorder: Comment: - The patient's seizure disorder is stable, with no reported seizures in approximately 4 years. - He will continue his current medications including Keppra, Lamictal, and Fycompa. - He is being followed by neurology. Code(s): G40.909 - Epilepsy, unspecified, not intractable, without status epilepticus Category: Medical (2) Glaucoma: Comment: - The patient is following with an customer sales distributor and is scheduled for a more intensive workup. - He is using multiple eye drops and is hesitant to add another. - This will be managed by his audio visual specialist. Code(s): H40.9 - Unspecified glaucoma Category: Medical Qualifiers: Glaucoma type: unspecified Laterality: unspecified laterality Qualified Code(s): H40.9 - Unspecified glaucoma (3) Depression: Comment: - The patient is stable on his current regimen of sertraline, risperidone, and mirtazapine. - He is followed by a psychiatrist for management. Code(s): F32.A - Depression, unspecified Category: Medical Qualifiers: Depression Type: unspecified Qualified Code(s): F32.A - Depression, unspecified (4) Hypertension: Comment: - The patient's blood pressure is well-controlled. - No changes will be made to his current medication, Lopressor 25 mg twice daily. Code(s): I10 - Essential (primary) hypertension Category: Medical Qualifiers: Hypertension type: unspecified Qualified Code(s): I10 - Essential (primary) hypertension (5) Hyperlipidemia: Comment: - Condition is stable. - No medication changes will be made. Continue simvastatin 40 mg. Code(s): E78.5 - Hyperlipidemia, unspecified Category: Medical Qualifiers: Hyperlipidemia type: unspecified Qualified Code(s): E78.5 - Hyperlipidemia, unspecified (6) GERD (gastroesophageal reflux disease): Comment: - Stable on omeprazole 40mg QHS Code(s): K21.9 - Gastro-esophageal reflux disease without esophagitis Category: Medical Qualifiers: Esophagitis presence: without esophagitis Qualified Code(s): K21.9 - Gastro-esophageal reflux disease without esophagitis Plan: Health Maintenance: - The patient was advised to get the COVID-19 booster and the influenza vaccine from the pharmacy. - The patient expressed reluctance to get the flu shot. - He is not due for any screenings at this time. - His next lung cancer screening is due next year. Patient was informed and verbally consented to the use of an ambient scribe for clinic note documentation during this visit. Plan I reviewed the patient's current medical status and noted he is stable on all his current medications for his chronic conditions, including seizures, depression, hypertension, and hypercholesterolemia. We discussed his glaucoma management, acknowledging his concern about the number of eye drops, and agreed that this should be followed up with his customer sales distributor. I advised him to get his COVID booster and flu shot, explaining the benefits of vaccination for his health, although he was reluctant about the flu shot. Given his stability, no medication changes or labs are needed today. We agreed on a follow-up appointment in six months, unless any new issues arise. Patient Instructions: - Continue all your current medications as prescribed. No changes were made today. - Follow up with your eye doctor about your glaucoma and the number of eye drops you are using. - It is recommended that you get the COVID-19 booster and the flu shot at a pharmacy. - Schedule a follow-up appointment in our office for six months from now. - You can schedule your follow-up appointment sooner if a new problem comes up.
== END 2025-08-21 11:57 | disposition home or self-care (01) ==
LOC: HO.HMCHD 11:29
PROVIDERS: PCP Student in an Organized Health Care Education/Training Program; Visit Provider Student in an Organized Health Care Education/Training Program
DX: G40.909 Epilepsy, unspecified, not intractable, without status epilepticus (principal); H40.9 Unspecified glaucoma; F32.A Depression, unspecified; I10 Essential (primary) hypertension; E78.5 Hyperlipidemia, unspecified; K21.9 Gastro-esophageal reflux disease without esophagitis

== ENCOUNTER → 2025-08-21 11:29 | Outpatient (BNVA) | payer MEDICARE, MEDICAID, SELFPAY | PROVIDERS: PCP Student in an Organized Health Care Education/Training Program; Visit Provider Student in an Organized Health Care Education/Training Program | DX: I10 Essential (primary) hypertension (principal); K21.9 Gastro-esophageal reflux disease without esophagitis; E78.5 Hyperlipidemia, unspecified; E78.00 Pure hypercholesterolemia, unspecified; F32.A Depression, unspecified; G40.909 Epilepsy, unspecified, not intractable, without status epilepticus; H40.9 Unspecified glaucoma; Z79.899 Other long term (current) drug therapy; Z87.891 Personal history of nicotine dependence | CPT/HCPCS: 99212 ==